=== PATIENT | male | born 1985 | race African-American/Black ===

== ENCOUNTER 2024-03-09 10:36 | Emergency (ER) | payer MEDICAID, SELFPAY ==
[2024-03-09 10:45] VITALS: BP 189/102; PULSE 86; RESP 18; TEMP 36.4; O2SAT 99
--- NOTE | 2024-03-09 11:07 | ED.DENTAL ---
HPI - Dental/Oral General Chief complaint: Dental/Oral Stated complaint: Toothache Time Seen by Provider: 03/09/24 11:09 Source: patient Mode of arrival: ambulatory Limitations: no limitations History of Present Illness HPI Narrative: 38-year-old male presents with complaint of right lower dental pain for 1 week. Not have a dentist and has not called and scheduled appointment with dentist. Afebrile. No other complaints today. All systems reviewed and negative except as noted above. Related Data Allergies Allergy/AdvReac Type Severity Reaction Status Date / Time No Known Allergies Allergy Verified 03/09/24 10:49 Review of Systems Review of Systems: CONSTITUTIONAL: Denies fever, chills, or sweats. EYES: Denies visual changes, redness, or discharge. ENT: Denies rhinorrhea, congestion, sore throat, or otalgia. Reports right lower dental pain. CARDIOVASCULAR: Denies chest pain, palpitations, or edema. RESPIRATORY: Denies cough or dyspnea. GASTROINTESTINAL: Denies abdominal pain, nausea, vomiting, or diarrhea. GENITOURINARY: Denies dysuria or hematuria. SKIN: Denies rash or itching. MUSCULOSKELETAL: Denies back pain, joint pain, or myalgia. NEUROLOGIC: Denies headache, numbness, or weakness. PSYCHIATRIC: Denies anxiety or depression. All other systems reviewed are negative, except as documented in HPI. PMF[facility] Comments At time of signature, agree with nursing past medical, surgical, social and family history. There is no relevant family history pertinent to the presenting complaint. Exam Narrative: GENERAL: This is a well-nourished, well-developed patient, in no apparent distress. HEAD: normocephalic, atraumatic. EYES: PERRL. Sclera clear/white. Vision is grossly intact. EARS: External ears normal NOSE: External nose normal MOUTH: R lower dental pain. Tooth #32 broken, decayed with surrounding erythema and swelling NECK: Neck supple, non-tender without lymphadenopathy, masses or thyromegaly. CARDIOVASCULAR: Regular rate and rhythm without murmurs, gallops, or rubs. RESPIRATORY: Clear to auscultation. Breath sounds equal bilaterally. No wheezes, rales, or rhonchi. SKIN: warm, Dry, intact with no suspicious lesions or rash, good texture and turgor. NEURO: awake, alert, and oriented to person, place and time. There were no obvious focal neurologic abnormalities. EXTREMITIES: No joint tenderness, effusion, or edema noted. Course Course Level of Care: Express Care Visit Vital Signs Vital signs: Vital Signs Temperature 36.4 C L 03/09/24 10:45 Pulse Rate 86 03/09/24 10:45 Respiratory Rate 18 03/09/24 10:45 Blood Pressure 189/102 H 03/09/24 10:45 Pulse Oximetry 99 03/09/24 10:45 Oxygen Delivery Room Air 03/09/24 10:45 Temperature 36.4 C L 03/09/24 10:45 Pulse Rate 86 03/09/24 10:45 Respiratory Rate 18 03/09/24 10:45 Blood Pressure 189/102 H 03/09/24 10:45 Pulse Oximetry 99 03/09/24 10:45 Oxygen Delivery Room Air 03/09/24 10:45 rechecked manually by ADJUSTER 162/88 reviewed MDM - Dental/Oral MDM Narrative Medical decision making narrative: Patient is aware of diagnosis, understands and agrees to treatment plan. Anticipatory guidance given. Patient agrees to follow-up as directed and is aware of reasons to seek care at the emergency department. Portions of this record may have been created with voice recognition software Discharge Plan Discharge Clinical Impression: Dental infection, Elevated blood pressure reading Patient Disposition: Home, Self-Care Condition: Stable Instructions: Antibiotic Form, Toothache (ED), Hypertension (ED) Additional Instructions: Take antibiotic as prescribed until gone. Take ibuprofen every 8 hours as needed for pain. You can also take [id number] Tylenol every 6-8 hours as needed for pain. Schedule a follow-up appointment with a dentist at next available appointment. Prescriptions: New ibuprofen 800 mg tablet
== END 2024-03-09 11:19 | disposition home or self-care (01) ==
PROVIDERS: Emergency Provider Nurse Practitioner Family
DX: K04.7 Periapical abscess without sinus (principal); R03.0 Elevated blood-pressure reading, without diagnosis of hypertension; J45.909 Unspecified asthma, uncomplicated
CPT/HCPCS: 99213; G0463

== ENCOUNTER 2025-07-15 09:38 | Emergency (ER) | payer OTHER, SELFPAY ==
[2025-07-15 09:44] VITALS: BP 164/113; PULSE 78; RESP 20; TEMP 36.7; O2SAT 98
--- NOTE | 2025-07-15 10:19 | ED.DENTAL ---
HPI - Dental/Oral General Chief complaint: Dental/Oral Stated complaint: tooth pain Time Seen by Provider: 07/15/25 10:13 Source: patient, family (significant other), RN notes reviewed and old records reviewed Mode of arrival: ambulatory Limitations: no limitations History of Present Illness HPI Narrative: Patient presents today with a 4 day history of left lower posterior tooth pain and gum swelling. States this tooth had been broken off at the gumline then it was an empty hole due to decay. Currently rates his pain 7/10 and has been taking Aleve without improvement. He has also been packing with temporary filling material. He does not currently have a dentist, but is planning [facility] an [facility]. Denies shortness of breath, difficulty swallowing, fever, trismus Related Data Home Medications ?Medication ?Instructions ?Recorded ?Confirmed ?Last Taken ?Type albuterol 07/15/25 Unknown History Allergies Allergy/AdvReac Type Severity Reaction Status Date / Time No Known Allergies Allergy Verified 07/15/25 09:59 [facility] Comments At time of signature, I have reviewed and agree with nursing past medical, surgical, social and family history unless otherwise noted. Please see nursing chart for further information. There is no relevant family history pertinent to the presenting complaint Exam Narrative: GENERAL: Well-appearing, well-nourished, and in no acute distress. HEAD: Normocephalic, atraumatic. EYES: EOMI. No redness or drainage. Conjunctivae normal. ENT: Mucous membranes pink and moist. Nares clear. No rhinorrhea. Area of Tooth 17 packed with temporary filling material. Surrounding gumline mildly edematous and erythematous. Jaw line is mildly edematous. No trismus. NECK: Normal AROM. Supple. No lymphadenopathy. CHEST: No respiratory distress. EXTREMITIES: Normal range of motion. No edema. SKIN: Warm, dry, no rash. Capillary refill normal. Normal skin turgor. NEURO: No focal deficits. Alert and oriented x3. Gait steady. PSYCH: Normal affect. No signs of depression or anxiety. Course Course Level of Care: [facility] Care Visit Vital Signs Vital signs: Vital Signs Temperature 98.0 F 07/15/25 09:44 Pulse Rate 78 07/15/25 09:44 Respiratory Rate 20 07/15/25 09:44 Blood Pressure 164/113 H 07/15/25 09:44 Pulse Oximetry 98 07/15/25 09:44 Oxygen Delivery Room Air 07/15/25 09:44 Temperature 98.0 F 07/15/25 09:44 Pulse Rate 78 07/15/25 09:44 Respiratory Rate 20 07/15/25 09:44 Blood Pressure 164/113 H 10 09:44 Pulse Oximetry 98 07/15/25 09:44 Oxygen Delivery Room Air 07/15/25 09:44 Reviewed MDM - Dental/Oral MDM Narrative Medical decision making narrative: 40 year old male patient presents today with a 4 day history of left lower posterior tooth pain and gum swelling. States this tooth had been broken off at the gumline then it was an empty hole due to decay. Currently rates his pain 04/18 and has been taking Aleve without improvement. He has also been packing with temporary filling material. OTC medication without improvement. Upon exam, tooth 17 is filled with temporary filling material and surrounding gum line is mildly erythematous and edematous. Will treat with course of amoxicillin. Rx for tramadol sent for severe pain. Urged to call and schedule follow up with dentist. Patient agrees with plan. VSS except BP is quite elevated. Follow up was same. Urged to follow up with PCP for management of BP. Anticipatory guidance given. Differential Diagnosis Differential diagnosis: Likely gingival abscess, dental caries, toothache and dental abscess Critical Care Time Critical Care Time Critical Care Time: No Discharge Plan Discharge Clinical Impression: Dental infection Patient Disposition: Home Condition: Stable Instructions: Antibiotic Form, Dental Abscess (ED) Additional Instructions: Please take the amoxicillin as prescribed until gone. Take the tramadol for severe pain. Take Tylenol for mild pain. Follow-up with a dentist as soon as possible. As discussed, if you develop a fever greater than 100.3, shortness of breath, difficulty swallowing, please go to the ER immediately for further evaluation. Your blood pressure was elevated above 120/80 today at Urgent Care. This puts you above the threshold for follow up. Please schedule a followup visit with your personal physician as soon as possible, for further evaluation and treatment. Even blood pressure exceeding 120/80 may indicate pre-hypertension. Patient Language: Citizen Of [place] Prescriptions: New amoxicillin 875 mg tablet 875 mg PO Q12H 10 Days Qty: 20 0RF tramadol 50 mg tablet 50 mg PO Q6H PRN (Reason: pain) Qty: 10 0RF No Action albuterol Follow-up/Referrals: PHYSICIAN,STATE ASSESSED PROPERTIES DIRECTOR [Primary Care Provider, Internal Medicine] Time of Disposition: 10:28
== END 2025-07-15 10:32 | disposition home or self-care (01) ==
PROVIDERS: Emergency Provider Nurse Practitioner
DX: K04.7 Periapical abscess without sinus (principal)
CPT/HCPCS: 99213; G0463

== ENCOUNTER 2025-09-21 14:59 | Emergency (ER) | payer OTHER, SELFPAY ==
[2025-09-21 15:03] VITALS: BP 162/104; PULSE 87; RESP 20; TEMP 36.3; O2SAT 100
--- NOTE | 2025-09-21 15:35 | ED_ITS ---
HPI - Dental/Oral General Chief complaint: Dental/Oral Stated complaint: tooth pain Time Seen by Provider: 09/21/25 15:24 Source: patient, RN notes reviewed and old records reviewed Mode of arrival: ambulatory Limitations: no limitations History of Present Illness HPI Narrative: Patient presents today complaining of left lower posterior tooth pain x3 days. Patient was seen for same complaint few months ago and treated with amoxicillin. Patient made an appointment with a dentist but when he showed up he was informed that they did not take his insurance. He has made an appointment in October with the dental school for follow up. At his last visit as well, he was instructed to follow-up with a PCP regarding his elevated blood pressure, and states he has called few office is but they were not taking new patients. He has been taking Tylenol for his discomfort without much improvement. Currently rates pain 6/10. Denies shortness of breath, difficulty swallowing, trismus, fever. Related Data Home Medications ?Medication ?Instructions ?Recorded ?Confirmed ?Last Taken ?Type albuterol 07/15/25 Unknown History Allergies Allergy/AdvReac Type Severity Reaction Status Date / Time No Known Allergies Allergy Verified 09/21/25 15:06 [facility] Comments At time of signature, I have reviewed and agree with nursing past medical, surgical, social and family history unless otherwise noted. Please see nursing chart for further information. There is no relevant family history pertinent to the presenting complaint Exam Narrative: GENERAL: Well-appearing, well-nourished, and in no acute distress. HEAD: Normocephalic, atraumatic. EYES: EOMI. No redness or drainage. Conjunctivae normal. ENT: Mucous membranes pink and moist. Throat normal. Uvula midline. Tooth 17 has large hole with some temporary filling in it. Mild surrounding erythema of the adjacent gumline. No obvious facial swelling. No obvious periapical abscess. No trismus. NECK: Normal AROM. Supple. No lymphadenopathy. CHEST: No respiratory distress. Clear to auscultation. HEART: Regular rate and rhythm. No murmur appreciated. EXTREMITIES: Normal range of motion. No edema. SKIN: Warm, dry, no rash. Capillary refill normal. Normal skin turgor. NEURO: No focal deficits. Alert and oriented x3. Gait steady. PSYCH: Normal affect. No signs of depression or anxiety. Course Course Level of Care: Express Care Visit Vital Signs Vital signs: Vital Signs Temperature 97.4 F L 09/21/25 15:03 Pulse Rate 87 09/21/25 15:03 Respiratory Rate 20 09/21/25 15:03 Blood Pressure 162/104 H 09/21/25 15:03 Pulse Oximetry 100 09/21/25 15:03 Oxygen Delivery Room Air 09/21/25 15:03 Temperature 97.4 F L 09/21/25 15:03 Pulse Rate 87 09/21/25 15:03 Respiratory Rate 20 09/21/25 15:03 Blood Pressure 162/104 H 09/21/25 15:03 Pulse Oximetry 100 09/21/25 15:03 Oxygen Delivery Room Air 09/21/25 15:03 Reviewed MDM MDM Narrative Medical decision making narrative: Patient presents today complaining of left lower posterior tooth pain x3 days. Patient was seen for same complaint few months ago and treated with amoxicillin. Patient made an appointment with a dentist but when he showed up he was informed that they did not take his insurance. He has made an appointment in October with the dental school for follow up. At his last visit as well, he was instructed to follow-up with a PCP regarding his elevated blood pressure, and states he has called few office is but they were not taking new patients. He has been taking Tylenol for his discomfort without much improvement. Currently rates pain 6/10. Denies shortness of breath, difficulty swallowing, trismus, fever. Upon exam, tooth 17 has large hole with some temporary filling material in it with some adjacent erythema to the gumline. No trismus or facial swelling noted. Patient will be started on a course of amoxicillin. He has an appointment set up with [facility] for follow-up in October. He will be given contact information for the physician liaison line at [facility] to schedule an appointment with a PCP regarding his elevated blood pressure. Patient agrees with this plan. Stressed the importance of this follow-up due to sequelae of chronically elevated blood pressure. Differential Diagnosis Differential Diagnosis: dental abscess, infected dental caries, gingivitis Critical Care Time Critical Care Time Critical Care Time: No Discharge Plan Discharge Clinical Impression: Dental infection, Elevated blood pressure reading Patient Disposition: Home Condition: Stable Instructions: Antibiotic Form, Dental Abscess (ED) Additional Instructions: Please take the amoxicillin and ibuprofen as directed. Please call and make an appointment with the dental school for follow-up. For PCP, you may call [facility] physician liaison number to help you at [phone]. If you develop any worsening symptoms such as fever, difficulty breathing or swallowing, difficulty opening your mouth, please go to the ER immediately for further evaluation. Patient Language: Croatian Prescriptions: New amoxicillin 875 mg tablet 875 mg PO Q12H 10 Days Qty: 20 0RF ibuprofen 400 mg tablet 400 mg PO TID PRN (Reason: pain) Qty: 20 0RF No Action albuterol Follow-up/Referrals: PHYSICIAN,SERVER SERVICE ASSISTANT [Primary Care Provider, Internal Medicine] Time of Disposition: 15:39
== END 2025-09-21 15:42 | disposition home or self-care (01) ==
PROVIDERS: Emergency Provider Nurse Practitioner
DX: K04.7 Periapical abscess without sinus (principal); R03.0 Elevated blood-pressure reading, without diagnosis of hypertension; J45.909 Unspecified asthma, uncomplicated
CPT/HCPCS: 99213; G0463